=== PATIENT | male | born 1940 | race Caucasian/White ===

== ENCOUNTER 2021-11-14 14:29 | Inpatient (IN) | payer MEDICARE, OTHER ==
[~2021-11-14] VITALS: Ht 167.6 cm; Wt 70.3 kg
[2021-11-14] MEDS ORDERED: IV NORMAL SALINE 1000 ML BAG IV ONE (14:30)
[2021-11-14 14:50] LABS: HEMATOCRIT 42.6 % (36.7-47.1); MEAN CORPUSCULAR HEMOGLOBIN 30.2 uug (23.8-33.4); MEAN CORPUSCULAR VOLUME 91.5 fL (73.0-96.2); PLATELET COUNT (AUTO) 222 K/uL (152-348)
[2021-11-14 15:04] LABS: ALANINE AMINOTRANSFERASE 44 U/L (16-63); ALKALINE PHOSPHATASE 117 U/L (50-136); ASPARTATE AMINOTRANSFERASE 23 U/L (15-37); BILIRUBIN,DIRECT 0.1 mg/dL (0.0-0.2); BILIRUBIN,TOTAL 0.4 mg/dL (0.2-1.0); CARBON DIOXIDE 26 mmol/L (21-32); CHLORIDE 103 mmol/L (98-107); CREATININE 2.3 mg/dL (0.6-1.3); POTASSIUM 3.7 mmol/L (3.5-5.1); TOTAL PROTEIN, SERUM 6.5 g/dL (6.4-8.2); UREA NITROGEN, BLOOD 37 mg/dL (7-18)
[2021-11-14 15:09] LABS: GLUCOSE 505 mg/dL (74-106)
[2021-11-14 15:15] LABS: ETHANOL < 3 MG/DL (0-0)
[2021-11-14] MEDS ORDERED: PRED2.5T PO (15:18)
[2021-11-14] MEDS ORDERED: INSU100V7 SQ (15:18)
[2021-11-14] MEDS ORDERED: DAPA10TA PO (15:18)
[2021-11-14] MEDS ORDERED: AMLO10TA59 PO (15:18)
[2021-11-14] MEDS ORDERED: FOLI1TAB94 PO (15:18)
[2021-11-14] MEDS ORDERED: ATOR40TA PO (15:18)
[2021-11-14] MEDS ORDERED: MELA3CAP2 PO (15:18)
[2021-11-14] MEDS ORDERED: LORA10TA7 PO (15:18)
[2021-11-14] MEDS ORDERED: MIRT-93 PO (15:18)
[2021-11-14] MEDS ORDERED: TRAZ-182 PO (15:18)
[2021-11-14] MEDS ORDERED: [UNRECOGNIZED DRUG - OTHER] PO (15:18)
[2021-11-14] MEDS ORDERED: OMEP20CA15 PO (15:18)
[2021-11-14] MEDS ORDERED: MEMA10TA PO (15:18)
[2021-11-14] MEDS ORDERED: LEVO100T10 PO (15:18)
[2021-11-14] MEDS ORDERED: DONE5TAB34 PO (15:18)
[2021-11-14] MEDS ORDERED: HYDR12.55 PO (15:18)
[2021-11-14] MEDS ORDERED: SALM1CAP4 PO (15:18)
[2021-11-14] MEDS ORDERED: VITAMIN D3 PO (15:18)
[2021-11-14] MEDS ORDERED: INSULIN REGULAR, HUMAN 300 UNIT/3 ML VIAL SQ ONE (15:30)
[2021-11-14] MEDS ORDERED: INSULIN REGULAR, HUMAN 300 UNIT/3 ML VIAL ONE (15:59)
[2021-11-14 16:11] LABS: *BILIRUBIN,URIN NEGATIVE (NEGATIVE); *CLARITY,URINE CLEAR (CLEAR); *COLOR,URINE YELLOW (YELLOW); *KETONES,URINE NEGATIVE (NEGATIVE); *UROBILINOGEN,URINE 0.2 E.U./dl (NORMAL); LEUKOCYTE ESTERASE ,URINE NEGATIVE (NEGATIVE); NITRITE, URINE NEGATIVE (NEGATIVE); PH,URINE 6.5 (5.0-8.0); UGLUCOSE 2+ (NEGATIVE)
[2021-11-14 16:16] LABS: *BLOOD, URINE TRACE (NEGATIVE)
[2021-11-14 17:41] LABS: *AMPHETAMINE, URINE NEGATIVE (NEGATIVE); *CANNABINOID, URINE NEGATIVE (NEGATIVE); *COCCAINE, URINE NEGATIVE (NEGATIVE); *OPIATE, URINE NEGATIVE (NEGATIVE); *PHENCYCLIDINE SCREEN,URINE NEGATIVE (NEGATIVE)
[2021-11-14] MEDS ORDERED: ACETAMINOPHEN 325 MG TABLET PO PRN (18:15)
[2021-11-14] MEDS ORDERED: ONDANSETRON 4 MG/2 ML VIAL IV PRN (18:15)
[2021-11-14] MEDS ORDERED: DEXTROSE 50% 50 ML DISP.SYRIN IV PRN (18:30)
[2021-11-14 18:38] LABS: BACTERIA,URINE NONE SEEN /HPF (NONE SEEN); RBC,URINE 0-3 /HPF (0-3); SQUAMOUS EPITHELIAL CELL,UR NONE SEEN /HPF (NONE SEEN); WBC,URINE 0-3 /HPF (0-3)
[2021-11-14] MEDS: IV 1/2NS 1000 ML 1,000 ML IV PRN (19:47)
[2021-11-14 20:30] VITALS: BP 157/80
[2021-11-14] MEDS: DOCUSATE SODIUM 100 MG CAPSULE PO SCH (20:39)
[2021-11-14] MEDS: DONEPEZIL 5 MG TABLET PO SCH (20:40)
[2021-11-14] MEDS: ATORVASTATIN 40 MG TABLET PO SCH (20:40)
[2021-11-14] MEDS: MIRTAZAPINE 15 MG TABLET PO SCH (20:40)
[2021-11-14] MEDS: MELATONIN 3 MG TABLET PO SCH (20:41)
[2021-11-14] MEDS: TRAZODONE 50 MG TABLET PO SCH (20:43)
[2021-11-14] MEDS: BLOOD SUGAR DIAGNOSTIC 1 EACH STRIP VI SCH (20:45)
[2021-11-14] MEDS: INSULIN REGULAR, HUMAN 300 UNITS/3 ML VIAL SQ PRN (20:56)
[2021-11-14] MEDS ORDERED: Medication Not On Formulary EA (Melatonin 3 MG) PO SCH (21:00)
[2021-11-15 00:12] VITALS: BP 158/90
[2021-11-15 04:23] VITALS: BP 177/89
[2021-11-15] MEDS: PANTOPRAZOLE SODIUM 40 MG TABLET.DR PO SCH (05:40)
[2021-11-15] MEDS: BLOOD SUGAR DIAGNOSTIC 1 EACH STRIP VI SCH ×4 (05:41→22:20)
[2021-11-15] MEDS: LEVOTHYROXINE SODIUM 100 MCG TABLET PO SCH (05:41)
[2021-11-15 07:29] LABS: HEMATOCRIT 41.5 % (36.7-47.1); MEAN CORPUSCULAR HEMOGLOBIN 30.2 uug (23.8-33.4); MEAN CORPUSCULAR VOLUME 89.6 fL (73.0-96.2); PLATELET COUNT (AUTO) 205 K/uL (152-348)
[2021-11-15] MEDS: INSULIN REGULAR, HUMAN 300 UNIT/3 ML VIAL SQ PRN ×2 (08:05→11:38)
[2021-11-15] MEDS: INSULIN GLARGINE,HUM 300 UNITS/3 ML CARTRIDGE SQ SCH (08:06)
[2021-11-15] MEDS: HEPARIN SODIUM,PORCINE 5,000 UNITS/ML VIAL SQ SCH ×2 (08:07→23:22)
[2021-11-15 08:15] LABS: ALANINE AMINOTRANSFERASE 51 U/L (16-63); ALKALINE PHOSPHATASE 133 U/L (50-136); ASPARTATE AMINOTRANSFERASE 24 U/L (15-37); BILIRUBIN,TOTAL 0.4 mg/dL (0.2-1.0); CARBON DIOXIDE 26 mmol/L (21-32); CHLORIDE 104 mmol/L (98-107); CHOLESTEROL 179 mg/dL (<200); CREATININE 2.3 mg/dL (0.6-1.3); GLUCOSE 303 mg/dL (74-106); HDL CHOLESTEROL 74 mg/dL (40-60); MAGNESIUM 1.8 mg/dL (1.8-2.4); PHOSPHOROUS 3.8 mg/dL (2.5-4.9); POTASSIUM 3.4 mmol/L (3.5-5.1); TOTAL PROTEIN, SERUM 6.3 g/dL (6.4-8.2); TRIGLYCERIDES 190 MG/DL (30-150); UREA NITROGEN, BLOOD 32 mg/dL (7-18)
[2021-11-15] MEDS: LORATADINE 10 MG TABLET PO SCH (08:21)
[2021-11-15] MEDS: FOLIC ACID 1 MG TABLET PO SCH (08:21)
[2021-11-15] MEDS: MEMANTINE HCL 5 MG TABLET PO SCH ×2 (08:21→16:32)
[2021-11-15] MEDS: AMLODIPINE 10 MG TABLET PO SCH (08:22)
[2021-11-15] MEDS: ASPIRIN EC 81 MG TABLET.DR PO SCH (08:22)
[2021-11-15] MEDS ORDERED: POTASSIUM CHLORIDE 10 MEQ TAB.PRT.SR PO ONE (09:45)
[2021-11-15 12:00] VITALS: BP 113/77
[2021-11-15] MEDS: IV 1/2NS 1000 ML 1,000 ML IV PRN (15:56)
[2021-11-15 16:36] VITALS: BP 136/80
[2021-11-15 20:26] VITALS: BP_SYST 144; BP_SYST 175; BP_DIAS 102; BP_DIAS 83
[2021-11-15] MEDS: MELATONIN 3 MG TABLET PO SCH (21:00)
[2021-11-15] MEDS: DOCUSATE SODIUM 100 MG CAPSULE PO SCH (22:30)
[2021-11-15] MEDS: TRAZODONE 50 MG TABLET PO SCH (23:13)
[2021-11-15] MEDS: DONEPEZIL 5 MG TABLET PO SCH (23:14)
[2021-11-15] MEDS: MIRTAZAPINE 15 MG TABLET PO SCH (23:15)
[2021-11-15] MEDS: ATORVASTATIN 40 MG TABLET PO SCH (23:16)
[2021-11-16 00:36] VITALS: BP 122/61
[2021-11-16 03:59] VITALS: BP 119/65
[2021-11-16] MEDS: BLOOD SUGAR DIAGNOSTIC 1 EACH STRIP VI SCH ×4 (06:11→20:14)
[2021-11-16 06:38] LABS: CARBON DIOXIDE 27 mmol/L (21-32); CHLORIDE 106 mmol/L (98-107); CREATININE 2.1 mg/dL (0.6-1.3); GLUCOSE 73 mg/dL (74-106); POTASSIUM 3.6 mmol/L (3.5-5.1); UREA NITROGEN, BLOOD 32 mg/dL (7-18)
[2021-11-16] MEDS: LEVOTHYROXINE SODIUM 100 MCG TABLET PO SCH (08:26)
[2021-11-16] MEDS: PANTOPRAZOLE SODIUM 40 MG TABLET.DR PO SCH (08:26)
[2021-11-16] MEDS: INSULIN GLARGINE,HUM 300 UNITS/3 ML CARTRIDGE SQ SCH (09:00)
[2021-11-16] MEDS: MEMANTINE HCL 5 MG TABLET PO SCH ×2 (09:31→17:26)
[2021-11-16] MEDS: LORATADINE 10 MG TABLET PO SCH (09:32)
[2021-11-16] MEDS: ASPIRIN EC 81 MG TABLET.DR PO SCH (09:32)
[2021-11-16] MEDS: HEPARIN SODIUM,PORCINE 5,000 UNITS/ML VIAL SQ SCH ×2 (09:32→20:32)
[2021-11-16] MEDS: FOLIC ACID 1 MG TABLET PO SCH (09:33)
[2021-11-16] MEDS: AMLODIPINE 10 MG TABLET PO SCH (09:34)
[2021-11-16 11:44] VITALS: BP 136/70
[2021-11-16] MEDS: INSULIN REGULAR, HUMAN 300 UNIT/3 ML VIAL SQ PRN ×2 (12:02→17:30)
[2021-11-16 16:00] VITALS: BP 112/57
[2021-11-16] MEDS: IV 1/2NS 1000 ML 1,000 ML IV PRN (16:06)
[2021-11-16 20:00] VITALS: BP 119/64
[2021-11-16] MEDS: DOCUSATE SODIUM 100 MG CAPSULE PO SCH (20:16)
[2021-11-16] MEDS: ATORVASTATIN 40 MG TABLET PO SCH (20:16)
[2021-11-16] MEDS: DONEPEZIL 5 MG TABLET PO SCH (20:17)
[2021-11-16] MEDS: TRAZODONE 50 MG TABLET PO SCH (20:17)
[2021-11-16] MEDS: MELATONIN 3 MG TABLET PO SCH (20:18)
[2021-11-16] MEDS: MIRTAZAPINE 15 MG TABLET PO SCH (20:22)
[2021-11-16] MEDS: INSULIN REGULAR, HUMAN 300 UNITS/3 ML VIAL SQ PRN (20:34)
[2021-11-17 04:21] VITALS: BP 146/70
[2021-11-17] MEDS: PANTOPRAZOLE SODIUM 40 MG TABLET.DR PO SCH (06:15)
[2021-11-17] MEDS: IV 1/2NS 1000 ML 1,000 ML IV PRN (06:15)
[2021-11-17] MEDS: BLOOD SUGAR DIAGNOSTIC 1 EACH STRIP VI SCH ×2 (06:15→11:31)
[2021-11-17] MEDS: LEVOTHYROXINE SODIUM 100 MCG TABLET PO SCH (06:15)
[2021-11-17] MEDS: LORATADINE 10 MG TABLET PO SCH (08:25)
[2021-11-17] MEDS: ASPIRIN EC 81 MG TABLET.DR PO SCH (08:25)
[2021-11-17] MEDS: MEMANTINE HCL 5 MG TABLET PO SCH (08:25)
[2021-11-17] MEDS: FOLIC ACID 1 MG TABLET PO SCH (08:25)
[2021-11-17] MEDS: AMLODIPINE 10 MG TABLET PO SCH (08:26)
[2021-11-17] MEDS: HEPARIN SODIUM,PORCINE 5,000 UNITS/ML VIAL SQ SCH (08:28)
[2021-11-17] MEDS: INSULIN GLARGINE,HUM 300 UNITS/3 ML CARTRIDGE SQ SCH (08:30)
[2021-11-17] MEDS ORDERED: LISINOPRIL 5 MG TABLET PO SCH (09:00)
[2021-11-17 11:30] VITALS: BP 110/46
[2021-11-17] MEDS: INSULIN REGULAR, HUMAN 300 UNIT/3 ML VIAL SQ PRN (11:34)
[2021-11-17 12:26] LABS: CARBON DIOXIDE 26 mmol/L (21-32); CHLORIDE 106 mmol/L (98-107); CREATININE 1.9 mg/dL (0.6-1.3); GLUCOSE 265 mg/dL (74-106); POTASSIUM 4.6 mmol/L (3.5-5.1); UREA NITROGEN, BLOOD 30 mg/dL (7-18)
[2021-11-17] MEDS ORDERED: ASPI-618 PO (13:23)
[2021-11-17] MEDS ORDERED: MELA3TAB41 PO (13:23)
[2021-11-17] MEDS ORDERED: PANT40TA49 PO (13:23)
[2021-11-17] MEDS ORDERED: INSU100V28 SQ ×2 (13:23)
[2021-11-17] MEDS ORDERED: DONE5TAB34 PO (13:23)
[2021-11-17] MEDS ORDERED: LORA-114 PO (13:23)
[2021-11-17] MEDS ORDERED: FOLI1TAB94 PO (13:23)
[2021-11-17] MEDS ORDERED: LEVO100T10 PO (13:23)
[2021-11-17] MEDS ORDERED: Insulin Glargine,Hum SQ (13:23)
[2021-11-17] MEDS ORDERED: TRAZ-252 PO (13:23)
[2021-11-17] MEDS ORDERED: MEMA5TAB42 PO (13:23)
[2021-11-17] MEDS ORDERED: LISI-782 PO (13:23)
[2021-11-17] MEDS ORDERED: DOCU-141 PO (13:23)
[2021-11-17] MEDS ORDERED: Blood Sugar Diagnostic VI (13:23)
[2021-11-17] MEDS ORDERED: MIRT-93 PO (13:23)
[2021-11-17 16:00] VITALS: BP 130/67
== END 2021-11-17 16:45 | DRG 73 ==
LOC: ER 14:30 → TELE3 17:00 → MEDSURG3 11-15 16:40
PROVIDERS: ADMIT Internal Medicine; ATTEND Internal Medicine
DX: G90.8 Other disorders of autonomic nervous system (principal); N17.0 Acute kidney failure with tubular necrosis; E44.0 Moderate protein-calorie malnutrition; D68.59 Other primary thrombophilia; I67.82 Cerebral ischemia; I13.0 Hypertensive heart and chronic kidney disease with heart failure and stage 1 through stage 4 chronic kidney disease, or unspecified chronic kidney disease; I50.30 Unspecified diastolic (congestive) heart failure; E11.65 Type 2 diabetes mellitus with hyperglycemia; Z68.25 Body mass index [BMI] 25.0-25.9, adult; Z20.822 Contact with and (suspected) exposure to COVID-19; F03.90 Unspecified dementia, unspecified severity, without behavioral disturbance, psychotic disturbance, mood disturbance, and anxiety; E03.9 Hypothyroidism, unspecified; Z79.890 Hormone replacement therapy; E78.5 Hyperlipidemia, unspecified; E87.6 Hypokalemia; Z79.4 Long term (current) use of insulin; Z86.010 Personal history of colon polyps; Z98.41 Cataract extraction status, right eye; Z91.14 Patient's other noncompliance with medication regimen; Z79.899 Other long term (current) drug therapy; N28.1 Cyst of kidney, acquired; Z74.09 Other reduced mobility; E11.22 Type 2 diabetes mellitus with diabetic chronic kidney disease; N18.9 Chronic kidney disease, unspecified; K21.9 Gastro-esophageal reflux disease without esophagitis; F10.10 Alcohol abuse, uncomplicated; Y90.0 Blood alcohol level of less than 20 mg/100 ml; H54.62 Unqualified visual loss, left eye, normal vision right eye
CPT/HCPCS: 36415; 70450; 71045; 76770; 83735; 84100; 84443; 84484; 85025; 85730; 93005; 93307; 93880; 97161; A4663; G0378; G0480; J1644; J1815; J7040